=== PATIENT | female | born 1985 | race African-American/Black ===

== ENCOUNTER 2016-09-15 17:09 | Inpatient (IN) ==
[2016-09-15] MEDS ORDERED: ONDANSETRON 4 MG/2 ML VIAL IV PRN (20:03)
[2016-09-15 20:24] LABS: Basophils % 0.3 % (0.0-0.8); Eosinophils # 0.1 10*3/uL (0.0-0.87); Eosinophils % 1.5 % (0.00-10.9); Hemoglobin 11.7 GM/DL (12.0-16.0); Immature Granulocytes % 0.4 %; Immature Granulocytes Absolute 0.03 #; Lymphocytes # 3.3 10*3/uL (1.4-4.0); Mean Corpuscular HGB Conc 33.4 GM/DL (32-36); Mean Corpuscular Hemoglobin 26 PG (27-34); Mean Corpuscular Volume 78.3 FL (87-102); Mean Platelet Volume 11.1 FL (9.6-12.0); Monocytes # 0.5 10*3/uL (0.11-0.8); Monocytes % 6.4 % (1.7-12.7); Neutrophils # 3.9 10*3/uL (1.4-7.4); Neutrophils % 49.4 % (38.7-73.9); Platelet Count 273 T/CUMM (130-400); Red Blood Count 4.47 MC/CUMM (3.8-5.5); Red Cell Distribution Width 15.4 % (9.3-17.3); White Blood Count 7.9 T/CUMM (4-12)
[2016-09-15] MEDS: INSULIN NPH 100 UNIT/ML SUBCUT SCH (20:28)
[2016-09-15] MEDS: INSULIN REGULAR 100 UNIT/ML SUBCUT SCH (20:28)
[2016-09-15] MEDS: LACTATED RINGERS 1,000 ML IV SCH (20:30)
[2016-09-15] MEDS ORDERED: BUTORPHANOL 1 MG/ML VIAL ONE (20:34)
[2016-09-15] MEDS: BUTORPHANOL 2 MG/ML VIAL IV PRN (20:35)
[2016-09-15] MEDS: AMPICILLIN INJ 2,000 MG in SODIUM CHLORIDE 0.9% 100 ML IV SCH (21:37)
[2016-09-15] MEDS ORDERED: INSULIN REGULAR 100 UNIT/ML SUBCUT ONE (23:58)
[2016-09-16] MEDS ORDERED: ALUMINUM/MAGNES/SIMETH MAX STR 30 ML UDCUP PO PRN (00:52)
[2016-09-16] MEDS: BUTORPHANOL 2 MG/ML VIAL IV PRN (01:04)
[2016-09-16] MEDS: AMPICILLIN INJ 2,000 MG in SODIUM CHLORIDE 0.9% 100 ML IV SCH ×3 (03:20→16:00)
[2016-09-16] MEDS: LACTATED RINGERS 1,000 ML IV SCH ×3 (06:16→16:01)
[2016-09-16] MEDS ORDERED: OXYTOCIN/LR 20 UNIT/1,000 ML BAG IV SCH (06:30)
[2016-09-16] MEDS ORDERED: fentaNYL 2 MCG/ROPIV 0.2% EPID 150 ML EPIDURAL SCH (07:32)
[2016-09-16] MEDS ORDERED: ePHEDrine 50 MG/ML AMP IV PRN (07:32)
[2016-09-16] MEDS ORDERED: CITRIC ACID/SODIUM CITRATE 30 ML UDCUP PO ONE (07:32)
[2016-09-16] MEDS ORDERED: PROMETHAZINE 25 MG/1 ML VIAL IM ONE (07:32)
[2016-09-16] MEDS ORDERED: diphenhydrAMINE 50 MG/1 ML VIAL IV PRN (07:32)
[2016-09-16] MEDS ORDERED: FAMOTIDINE 20 MG/2 ML VIAL IV ONE (07:32)
[2016-09-16] MEDS ORDERED: hydrOXYzine HCL 25 MG/1 ML VIAL IM PRN (07:32)
--- NOTE | 2016-09-16 09:12 | OB/GYN History & Physical ---
History of Present Illness Chief complaint: Contractions History of present illness: Ms. Goins is a 30 year old female 37 weeks gestation with history of type 1 diabetes mellitus presents to the office for routine care. Patient was found to be dilated 4-5 cm with irregular uterine contractions. She was therefore sent to labor and delivery for evaluation. Home Medications Medication Instructions Recorded Confirmed Type Insulin NPH [HumuLIN N] 12 unit SUBCUT DIRECTED 09/15/16 09/15/16 History Multivitamin () [ 1 tablet PO DAILY 09/15/16 09/17/16 History Vitamin] Ibuprofen Tab [Motrin Tab] 800 mg PO Q6H PRN #60 tablet 09/18/16 Rx metFORMIN [Glucophage] 500 mg PO BID W/MEALS #60 tablet 09/18/16 Rx Allergies Allergy/AdvReac Type Severity Reaction Status Date / Time strawberry Allergy RASH Verified 03/24/16 18:35 12 point system: reviewed and no additional remarkable complaints except as stated Medical,Surgical,& Family Hx - Medical History Cardio: History of: Hypertension Endocrine: History of: Diabetes Mellitus (IDDM), Diabetes Mellitus (NIDDM) Reproductive: No history of: Ectopic , Complication - Surgical History Reproductive Surgeries: Patient denies;: Section - Family History Family History: Reports;: Family Diabetes (FATHER) Denies;: Family Anesthesia Reaction, Family Cancer, Family Heart Disease, Family Hematology, Family Hypertension, Family Psychiatric Problems, Family Stroke, Additional Family History - Social History Smoking Status: Current every day smoker Frequency of Alcohol Use: None Type of Drug Use: 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 - Constitutional Vitals: Vital Signs Temp Pulse Resp BP Pulse Ox 09/16/16 04:00 98.2 F 62 18 129/87 09/15/16 23:22 97.7 F 72 18 130/67 09/15/16 20:00 98.3 F 76 18 145/90 09/15/16 16:00 83 18 136/86 100 General appearance: mild distress - Head Head exam: Present: normocephalic - ENT ENT exam: Present: normal exam - Neck Neck exam: Present: normal inspection - Respiratory Respiratory exam: Present: clear to auscultation bilaterally - Cardiovascular Cardiovascular exam: Present: regular rate and rhythm - GI/Abdominal GI/Abdominal exam: Present: normal bowel sounds - Extremities Exam Extremities exam: Present: normal inspection - Back Exam Back exam: Present: normal inspection - Neurological Exam Neurological exam: Present: alert, oriented X3 - Psychiatric Psychiatric exam: Present: normal affect, normal mood - Skin Skin exam: Present: normal color, warm Assessment and Plan (1) 37 weeks gestation of Status: Acute Current Visit: Yes (2) Diabetes mellitus affecting Status: Acute Current Visit: Yes Results - Labs CBC & BMP: 09/18/16 05:50
[2016-09-16] MEDS ORDERED: BISACODYL 10 MG SUPP RECTAL PRN (13:48)
[2016-09-16] MEDS ORDERED: WITCH HAZEL PADS 100/JAR TOP PRN (13:48)
[2016-09-16] MEDS ORDERED: MEASLES/MUMPS/RUBELLA VACCINE 0.5 ML VIAL SUBCUT ONE (13:48)
[2016-09-16] MEDS ORDERED: RHO(D) IMMUNE GLOBULIN 300 MCG SYRINGE IM ONE (13:48)
[2016-09-16] MEDS ORDERED: ACETAMINOPHEN 325 MG TABLET PO PRN (13:48)
[2016-09-16] MEDS ORDERED: oxyCODONE/ACETAMINOPHEN 5-325 MG TABLET PO PRN (13:48)
[2016-09-16] MEDS ORDERED: LANOLIN 50% CREAM 0.3 OZ TUBE TOP PRN (13:48)
[2016-09-16] MEDS ORDERED: OXYTOCIN/LR 20 UNIT/1,000 ML BAG IV ONE (13:48)
[2016-09-16] MEDS ORDERED: ONDANSETRON 4 MG/2 ML VIAL IV PRN (13:48)
[2016-09-16] MEDS ORDERED: BENZOCAINE 20%/MENTHOL 0.5% SPRAY 56 GM CAN TOP PRN (13:48)
[2016-09-16] MEDS ORDERED: HYDROCORTISONE 2.5% RECTAL CREAM 30 GM TUBE TOP PRN (13:48)
[2016-09-16] MEDS ORDERED: DIPH/TET/ACEL PERT BOOSTER VACCINE 0.5 ML VIAL IM ONE (13:48)
--- NOTE | 2016-09-16 13:52 | Operative Note ---
Date of procedure: 09/16/16 Procedure Preformed: Patient delivered a liveborn male via spontaneous vaginal delivery with vacuum assistance. Vacuum applied 2 with total application 1 application time less than 30 seconds. Baby's head was delivered in the OA position. With nuchal cord 1 easily reduced. The baby's nose mouth bulb suctioned the perineum. Anterior posterior shoulders followed by the body was delivered with ease. Status post internal after" was doubly clamped and cut. Cord blood was sent. Placenta was delivered spontaneously and intact with three-vessel cord. Midline episiotomy was cut and repaired with 2-0 chromic. The uterus was massaged and was found to confirm a well contracted. Birthweight []. Apgars 8 9. Baby and mother stable. And the procedure all sponge lap counts correct 2. Surgeon / Physician: Lizy Snyder Post-op diagnosis: same Findings: Liveborn male Apgars 8 and 9. Birthweight unavailable at time of dictation Specimens: none sent Estimated blood loss: other (100 mL) Condition: stable Anesthesia: epidural Disposition: floor
[2016-09-16] MEDS ORDERED: MAGNESIUM SULF RIDER 100 ML IV ONE (15:38)
[2016-09-16] MEDS ORDERED: MAGNESIUM SULF DRIP 40 GM/1,000 ML ML IV SCH (16:00)
[2016-09-16] MEDS: IBUPROFEN 800 MG TABLET PO PRN (18:14)
[2016-09-16] MEDS: oxyCODONE/ACETAMINOPHEN 5-325 MG TABLET PO PRN (18:15)
[2016-09-16] MEDS: INSULIN REGULAR 100 UNIT/ML SUBCUT SCH ×2 (19:03→21:00)
[2016-09-16] MEDS ORDERED: INSULIN REGULAR 100 UNIT/ML SUBCUT SCH (19:04)
[2016-09-16] MEDS: INSULIN NPH 100 UNIT/ML SUBCUT SCH (21:00)
[2016-09-17] MEDS: IBUPROFEN 800 MG TABLET PO PRN ×3 (05:40→18:32)
[2016-09-17] MEDS: oxyCODONE/ACETAMINOPHEN 5-325 MG TABLET PO PRN ×3 (05:40→18:35)
[2016-09-17 05:46] LABS: Basophils % 0.2 % (0.0-0.8); Eosinophils # 0.2 10*3/uL (0.0-0.87); Eosinophils % 1.1 % (0.00-10.9); Hematocrit 27.5 VOL% (35.7-47.0); Hemoglobin 9.3 GM/DL (12.0-16.0); Immature Granulocytes % 0.4 %; Immature Granulocytes Absolute 0.05 #; Lymphocytes # 3.8 10*3/uL (1.4-4.0); Lymphocytes % 26.7 % (21.3-54.2); Mean Corpuscular HGB Conc 33.8 GM/DL (32-36); Mean Corpuscular Hemoglobin 26 PG (27-34); Mean Corpuscular Volume 77.7 FL (87-102); Mean Platelet Volume 11.5 FL (9.6-12.0); Monocytes # 1.1 10*3/uL (0.11-0.8); Monocytes % 7.7 % (1.7-12.7); Neutrophils % 63.9 % (38.7-73.9); Platelet Count 195 T/CUMM (130-400); Red Blood Count 3.54 MC/CUMM (3.8-5.5); Red Cell Distribution Width 15.2 % (9.3-17.3); White Blood Count 14.1 T/CUMM (4-12)
--- NOTE | 2016-09-17 08:13 | OB/GYN Progress Note ---
Assessment and Plan (1) 37 weeks gestation of Status: Acute Current Visit: Yes (2) Diabetes mellitus affecting Status: Acute Current Visit: Yes (3) Pre-eclampsia affecting puerperium Status: Acute Assessment and plan: Continue magnesium sulfate until 24 hours . 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 Breast-feeding with ease. 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: Vital Signs Temp Pulse Resp BP 09/17/16 06:00 20 09/17/16 04:00 97.6 F 93 H 18 133/92 09/17/16 02:00 18 09/17/16 00:00 97.8 F 93 H 20 172/86 09/16/16 22:00 20 09/16/16 20:00 97.6 F 95 H 20 156/98 General appearance: no acute distress - Antepartum / Post Post Exam Abdomen obstetrics: Present: bowel sounds normal Vagina: Present: normal moisture Uterus exam: Present: normal size, normal contour Anus/Rectum: Present: normal perianal skin - Respiratory Respiratory exam: Present: clear to auscultation bilaterally - Cardiovascular Cardiovascular exam: Present: regular rate and rhythm - GI/Abdominal GI/Abdominal exam: Present: soft - Extremities Exam Extremities exam: Present: normal inspection - Back Exam Back exam: Present: normal inspection - Neurological Exam Neurological exam: Present: alert, oriented X3 - Psychiatric Psychiatric exam: Present: normal affect, normal mood - Skin Skin exam: Present: normal color, warm Results - Labs CBC & BMP: 09/17/16 05:07
[2016-09-17] MEDS: DOCUSATE SODIUM 100 MG CAPSULE PO SCH ×3 (09:05→22:01)
[2016-09-17] MEDS: INSULIN NPH 100 UNIT/ML SUBCUT SCH ×2 (09:05→21:17)
[2016-09-17] MEDS: INSULIN REGULAR 100 UNIT/ML SUBCUT SCH ×5 (09:10→21:48)
[2016-09-17] MEDS ORDERED: INSULIN REGULAR 100 UNIT/ML SUBCUT ONE (11:00)
[2016-09-17] MEDS ORDERED: DEXTROSE 50% 25 GM/50 ML VIAL IV PRN (11:02)
[2016-09-17] MEDS ORDERED: GLUCAGON 1 MG VIAL IM PRN (11:02)
--- NOTE | 2016-09-17 12:01 | Anesthesia Post-Op ---
Anesthesia Post OP - Post Ansesthetic Evaluation Patient seen in post op: Yes Resp: within normal limits CV: within normal limits Mental: within normal limits Temp: within normal limits [id number]: within normal limits Nausea and Vomiting: within normal limits Pain: within normal limits
[2016-09-18] MEDS: IBUPROFEN 800 MG TABLET PO PRN
[2016-09-18 06:05] LABS: Basophils % 0.3 % (0.0-0.8); Eosinophils # 0.2 10*3/uL (0.0-0.87); Eosinophils % 1.5 % (0.00-10.9); Hematocrit 27.9 VOL% (35.7-47.0); Hemoglobin 9.3 GM/DL (12.0-16.0); Immature Granulocytes % 0.3 %; Immature Granulocytes Absolute 0.03 #; Lymphocytes % 44.7 % (21.3-54.2); Mean Corpuscular HGB Conc 33.3 GM/DL (32-36); Mean Corpuscular Hemoglobin 26 PG (27-34); Mean Corpuscular Volume 78.8 FL (87-102); Mean Platelet Volume 11.2 FL (9.6-12.0); Monocytes # 0.7 10*3/uL (0.11-0.8); Monocytes % 6.2 % (1.7-12.7); Neutrophils # 5.3 10*3/uL (1.4-7.4); Platelet Count 208 T/CUMM (130-400); Red Blood Count 3.54 MC/CUMM (3.8-5.5); Red Cell Distribution Width 15.7 % (9.3-17.3); White Blood Count 11.2 T/CUMM (4-12)
[2016-09-18 07:36] VITALS: BP 152/75
[2016-09-18] MEDS: INSULIN REGULAR 100 UNIT/ML SUBCUT SCH ×2 (08:24→08:26)
[2016-09-18] MEDS: INSULIN NPH 100 UNIT/ML SUBCUT SCH (08:25)
[2016-09-18] MEDS: oxyCODONE/ACETAMINOPHEN 5-325 MG TABLET PO PRN ×2 (08:27)
--- NOTE | 2016-09-18 08:52 | Discharge Summary ---
Hospital Course - Hospital Course Hospital Course: This is a 30-year-old female admitted at 37 weeks gestation in labor. Patient subsequently delivered a liveborn infant via spontaneous vaginal delivery. Hospital course complicated by elevated Accu-Cheks due to patient noncompliance with regard to her diet. Otherwise unremarkable. Patient is breast-feeding and ready for discharge this morning Diagnosis - Discharge Diagnosis (1) 37 weeks gestation of Status: Acute (2) Diabetes mellitus affecting Status: Acute (3) Pre-eclampsia affecting puerperium Status: Acute (4) Vaginal delivery Status: Acute Specialty Discharge - Follow Up or Referrals Discharge Plan - Discharge Data Disposition: Disch To Home/Self Care Condition at Discharge: Stable Discharge Diet: diabetic diet Activity: resume usual activities as tolerated (Pelvic rest) Hygiene: may shower Weight Bearing at Discharge: weight bear as tolerated Driving: not until seen by doctor (1 week) Contact your physician if you experience:: fever over 101, Difficulty voiding, Redness or swelling, Nausea/Vomiting, Shortness of breath, Bleeding, pain uncontrolled by pain medications - Discharge Medications New Ibuprofen Tab [Motrin Tab] 800 mg PO Q6H PRN #60 tablet PRN Reason: Pain Moderate (4-7) metFORMIN [Glucophage] 500 mg PO BID W/MEALS #60 tablet No Action Multivitamin () [ Vitamin] 1 tablet PO DAILY Insulin NPH [HumuLIN N] 12 unit SUBCUT DIRECTED - Follow Up or Referral Follow Up: Lizy Snyder MD [Physician] - 1 Month - Forms/Instructions Instructions: Low Fat Diet (GEN) Exam - Constitutional Vitals: Period Temp Pulse Resp BP Sys/Garcia Pulse Ox Last 24 Hr 97.5 F-98.7 F 6-100 18-20 128-154/73-96 97-100 General appearance: no acute distress - Head Head exam: Present: normocephalic - ENT ENT exam: Present: normal exam - Neck Neck exam: Present: normal inspection - Respiratory Respiratory exam: Present: clear to auscultation bilaterally - Cardiovascular Cardiovascular exam: Present: regular rate and rhythm - GI/Abdominal GI/Abdominal exam: Present: normal bowel sounds, soft, other (Uterus firm and well contracted at the level of the umbilicus) - Extremities Exam Extremities exam: Present: normal inspection - Back Exam Back exam: Present: normal inspection - Neurological Exam Neurological exam: Present: alert, oriented X3 - Psychiatric Psychiatric exam: Present: normal affect, normal mood - Skin Skin exam: Present: normal color, warm Discharge Results Labs on day of discharge: Labs from last 24 hours 09/18/16 09/18/16 09/17/16 07:49 05:50 19:48 WBC 11.2 RBC 3.54 L Hgb 9.3 L Hct 27.9 L MCV 78.8 L MCH 26 L MCHC 33.3 RDW 15.7 Plt Count 208 MPV 11.2 Neut % (Auto) 47.0 Lymph % (Auto) 44.7 Reagan % (Auto) 6.2 Eos % (Auto) 1.5 Baso % (Auto) 0.3 Neut # (Auto) 5.3 Lymph # (Auto) 5.0 H Reagan # (Auto) 0.7 Eos # (Auto) 0.2 Baso # (Auto) 0.0 Immature Gran % 0.3 Nucleated RBC % 0.0 Immature Gran # 0.03 Nucleated RBCs # 0.00 POC Glucose 157 H 164 H Magnesium 09/17/16 09/17/16 09/17/16 16:25 14:22 10:57 WBC RBC Hgb Hct MCV MCH MCHC RDW Plt Count MPV Neut % (Auto) Lymph % (Auto) Reagan % (Auto) Eos % (Auto) Baso % (Auto) Neut # (Auto) Lymph # (Auto) Reagan # (Auto) Eos # (Auto) Baso # (Auto) Immature Gran % Nucleated RBC % Immature Gran # Nucleated RBCs # POC Glucose 264 H 349 H Magnesium 3.1 H DS: Provider Date of admission: 09/15/16 20:03 Attending physician on admission: Lizy Snyder MD Consults: 09/15/16 20:03 Consult to Anesthesiology [CONS] Routine Consulting Provider: Reason for Anesthesiology: Epidural Consult Comment: Epidural for pain managment 09/16/16 13:48 Consult to Certified Medicine Aide [CONS] Routine Consult Certified Medicine Aide: Breast Feeding Discharging clinician: Lizy Snyder MD
[2016-09-18] MEDS: DOCUSATE SODIUM 100 MG CAPSULE PO SCH (09:09)
--- NOTE | 2016-09-26 11:10 | Physician Query Form ---
CLICK EDIT DOCUMENT TO SELECT QUERY ANSWER --> OK --> SIGN Lety Crenshaw RN Clinical Audio Visual Aide W) [phone] (f) [phone] [email or web address]: Make your selection(s) from the choices in EACH section by typing an "x" and enter comments in the comment section. Please use your independent medical judgment in providing your response. This request does not imply that any particular answer is desired or expected. CLINICAL INDICATORS: (Providers should not edit this section) Based on documentation of "Patient delivered a liveborn male via spontaneous vaginal delivery with vacuum assistance. Vacuum applied 2 with total application 1 application time less than 30 seconds." Please clarify reason for vacuum assistance Based on the above, could you clarify the appropriate diagnosis, if significant , that supports the above abnormalities and additional evaluation, monitoring, and/or treatment rendered: ( ) Distress (x ) Maternal Exhaustion ( ) Labor Complications ( ) Attempted or Failed Delivery ( ) Other, please specify: ( ) Clinically unable to determine COMMENTS: PLEASE ALSO DOCUMENT RESPONSE IN PROGRESS NOTES AND/OR DISCHARGE SUMMARY Use of terms such as suspected, likely, or probable (associated with a specific diagnosis that is being evaluated, monitored, or treated as if it exists) are acceptable and can be restated in the discharge summary if not ruled out. MTDD
== END 2016-09-18 12:30 | disposition home or self-care (01) | DRG 560 ==
LOC: N.LDOUT 17:09 → N.LD 17:12 → N.OB 09-17 10:45
PROVIDERS: ADMIT Obstetrics & Gynecology; ATTEND Obstetrics & Gynecology

== ENCOUNTER 2017-11-11 13:50 | Inpatient (IN) ==
[2017-11-11 15:09] LABS: Basophils % 0.2 % (0.0-0.8); Hemoglobin 11.6 GM/DL (12.0-16.0); Immature Granulocytes % 0.2 %; Immature Granulocytes Absolute 0.02 #; Lymphocytes # 3.1 10*3/uL (1.4-4.0); Lymphocytes % 35.8 % (21.3-54.2); Mean Corpuscular HGB Conc 33.1 GM/DL (32-36); Mean Corpuscular Hemoglobin 27 PG (27-34); Mean Corpuscular Volume 80.1 FL (87-102); Mean Platelet Volume 12.8 FL (9.6-12.0); Monocytes # 0.7 10*3/uL (0.11-0.8); Monocytes % 7.5 % (1.7-12.7); Neutrophils # 4.9 10*3/uL (1.4-7.4); Neutrophils % 56.3 % (38.7-73.9); Platelet Count 251 T/CUMM (130-400); Red Blood Count 4.37 MC/CUMM (3.8-5.5); Red Cell Distribution Width 14.8 % (9.3-17.3); White Blood Count 8.6 T/CUMM (4-12)
[2017-11-11 15:31] LABS: Cord Venous Blood HCO3 11.4 MMOL/L; Cord Venous Blood PCO2 81.3 MMHG
[2017-11-11 15:37] LABS: INR 0.9; PT Patient Result 9.4 SECS; Partial Thromboplastin Time 24.9 SECS (0-40)
[2017-11-11 15:43] LABS: Cord Venous Blood PO2 7.8
[2017-11-11 15:50] LABS: Albumin 2.6 G/DL (3.4-5.0); Bilirubin,Total 0.4 MG/DL (0.2-1.0); Calcium 10.1 MG/DL (8.5-10.1); Osmolality,Calculated 278.4 MOS/KG (273-304); Potassium 4.5 MMOL/L (3.5-5.1); Total Protein 6.7 G/DL (6.4-8.3)
[2017-11-11 19:06] LABS: Barbiturates Screen,Urine Negative (Negative); Benzodiazepines Screen,Urine Negative (Negative); Cannabinoid Screen,Urine Negative (Negative); Opiate Screen,Urine Negative (Negative); Phencyclidine Screen,Urine Negative (Negative)
[2017-11-11 19:18] LABS: Apearance,Urine Slightly Hazy (Clear); Bilirubin,Urine Negative (Negative); Blood, Urine Large mg/dL (Negative); Glucose,Urine (UA) >=500 mg/dL (Negative); Ketones,Urine 5 mg/dL (Negative); Mucus,Urine Occasional /LPF (Occasional); Nitrite,Urine Negative (Negative); Protein,Urine 100 MG/DL; RBC,Urine 1496 /HPF (0-4); Urine Color Yellow (Yellow); Urine Specific Gravity 1.011 (1.001-1.035); Urine Urobilinogen < 2.0 EU/DL (0.2-1.0)
[2017-11-12 05:32] LABS: Basophils % 0.3 % (0.0-0.8); Hematocrit 31.3 VOL% (35.7-47.0); Hemoglobin 10.8 GM/DL (12.0-16.0); Immature Granulocytes % 0.3 %; Immature Granulocytes Absolute 0.03 #; Lymphocytes # 3.2 10*3/uL (1.4-4.0); Lymphocytes % 27.6 % (21.3-54.2); Mean Corpuscular HGB Conc 34.5 GM/DL (32-36); Mean Corpuscular Hemoglobin 27 PG (27-34); Mean Corpuscular Volume 77.3 FL (87-102); Mean Platelet Volume 11.9 FL (9.6-12.0); Monocytes # 1.1 10*3/uL (0.11-0.8); Monocytes % 9.4 % (1.7-12.7); Neutrophils # 7.2 10*3/uL (1.4-7.4); Neutrophils % 62.4 % (38.7-73.9); Platelet Count 205 T/CUMM (130-400); Red Blood Count 4.05 MC/CUMM (3.8-5.5); Red Cell Distribution Width 14.7 % (9.3-17.3); White Blood Count 11.4 T/CUMM (4-12)
[2017-11-13 08:22] VITALS: BP 127/85
== END 2017-11-13 11:00 | disposition home or self-care (01) | DRG 560 ==
LOC: N.LDOUT 13:50 → N.LD 14:41 → N.OB 11-12 19:03
PROVIDERS: ADMIT Obstetrics & Gynecology; ATTEND Obstetrics & Gynecology

== ENCOUNTER 2020-05-09 00:05 | Inpatient (IN) ==
[2020-05-09] MEDS ORDERED: ONDANSETRON 4 MG/2 ML VIAL IV PRN ×2 (00:16→05:14)
[2020-05-09] MEDS ORDERED: LACTATED RINGERS 1,000 ML IV SCH (00:30)
[2020-05-09] MEDS ORDERED: AMPICILLIN INJ 2,000 MG in SODIUM CHLORIDE 0.9% 100 ML IV ONE ×2 (01:00→04:01)
[2020-05-09 01:28] LABS: Alanine Aminotransferase 18 U/L (13-56); Albumin 2.4 G/DL (3.4-5.0); Alkaline Phosphatase 168 U/L (45-117); Aspartate Amino Transferase 12 U/L (0-37); Bilirubin,Total < 0.39 MG/DL (0.2-1.0); Blood Urea Nitrogen 9 MG/DL (7-18); Carbon Dioxide 19 MMOL/L (21-32); Estimated Glom Filtration Rate 119 ML/MIN; Glucose 145 MG/DL (74-106); Potassium 3.8 MMOL/L (3.5-5.1); Sodium 136 MMOL/L (136-145)
[2020-05-09 01:35] LABS: Basophils % 0.2 % (0.0-0.8); Eosinophils % 0.1 % (0.00-10.9); Hematocrit 33.9 VOL% (35.7-47.0); Hemoglobin 11.3 GM/DL (12.0-16.0); Immature Granulocytes % 0.4 %; Immature Granulocytes Absolute 0.04 #; Lymphocytes # 3.2 10*3/uL (1.4-4.0); Lymphocytes % 30.1 % (21.3-54.2); Mean Corpuscular HGB Conc 33.3 GM/DL (32-36); Mean Corpuscular Volume 86.3 FL (87-102); Monocytes % 6.8 % (1.7-12.7); Neutrophils % 62.4 % (38.7-73.9); Platelet Count 210 T/CUMM (130-400); Red Blood Count 3.93 MC/CUMM (3.8-5.5); Red Cell Distribution Width 14.4 % (9.3-17.3); White Blood Count 10.7 T/CUMM (4-12)
[2020-05-09 01:36] LABS: Barbiturates Screen,Urine Negative (Negative); Benzodiazepines Screen,Urine Negative (Negative); Cannabinoid Screen,Urine Negative (Negative); Opiate Screen,Urine Positive (Negative); Phencyclidine Screen,Urine Negative (Negative)
[2020-05-09 01:40] LABS: Bacteria,Urine Occasional /HPF (Few); Bilirubin,Urine Negative (Negative); Blood, Urine Negative (Negative); Glucose,Urine (UA) Negative (Negative); Ketones,Urine Negative (Negative); Mucus,Urine Occasional /LPF (Occasional); Nitrite,Urine Negative (Negative); Protein,Urine 30 MG/DL; RBC,Urine 3 /HPF (0-4); Squamous Epithelial Cell,Urine Few /HPF (0-10); Urine Appearance Slightly Hazy (Clear); Urine Color Yellow (Yellow); WBC,Urine 5 /HPF (0-6)
[2020-05-09 03:15] LABS: Lymphocytes 25 % (20-55); Segmented Neutrophils 75 % (50-85); Total Cells Counted 100
[2020-05-09 03:18] LABS: Atypical Lymphocytes 1+; Platelet Estimate Decreased; Polychromasia Few; Reactive Lymphocytes Few
[2020-05-09] MEDS ORDERED: BUTORPHANOL 2 MG/ML VIAL IV PRN (03:53)
[2020-05-09] MEDS ORDERED: ePHEDrine 50 MG/ML VIAL IV PRN (03:54)
[2020-05-09] MEDS ORDERED: NALOXONE 0.4 MG/ML VIAL IV PRN (03:54)
[2020-05-09] MEDS ORDERED: CITRIC ACID/SODIUM CITRATE 30 ML UDCUP PO ONE (03:54)
[2020-05-09] MEDS ORDERED: hydrOXYzine HCL 25 MG/1 ML VIAL IM PRN (03:54)
[2020-05-09] MEDS ORDERED: MEPERIDINE 50 MG/1 ML VIAL IV PRN (03:54)
[2020-05-09] MEDS ORDERED: LACTATED RINGERS 1,000 ML IV ONE (03:54)
[2020-05-09] MEDS ORDERED: FAMOTIDINE 20 MG/2 ML VIAL IV ONE (03:54)
[2020-05-09] MEDS ORDERED: PROMETHAZINE 25 MG/1 ML VIAL IM ONE (03:54)
[2020-05-09] MEDS ORDERED: diphenhydrAMINE 50 MG/1 ML VIAL IV PRN ×2 (03:54)
[2020-05-09] MEDS ORDERED: BUTORPHANOL 2 MG/ML VIAL ONE (03:57)
[2020-05-09] MEDS ORDERED: fentaNYL 2 MCG/ROPIV 0.2% EPID 100 ML EPIDURAL SCH (04:00)
[2020-05-09] MEDS ORDERED: AMPICILLIN 2,000 MG VIAL ONE (04:01)
[2020-05-09] MEDS ORDERED: SODIUM CHLORIDE 0.9% 100 ML IV ONE (04:01)
[2020-05-09] MEDS ORDERED: MAGNESIUM SULF RIDER 100 ML IV ONE ×2 (04:04→04:05)
[2020-05-09] MEDS ORDERED: LABETALOL 100 MG/20 ML VIAL IV ONE ×2 (04:10)
[2020-05-09] MEDS ORDERED: MAGNESIUM SULF DRIP 40 GM/1,000 ML ML IV ONE (04:13)
[2020-05-09] MEDS ORDERED: TRANEXAMIC ACID 1,000 MG/10 ML VIAL ONE (04:34)
[2020-05-09] MEDS ORDERED: miSOPROStoL 200 MCG TABLET ONE (04:34)
[2020-05-09] MEDS ORDERED: OXYTOCIN/LR 20 UNIT/1,000 ML BAG IV ONE ×2 (04:34→05:14)
[2020-05-09] MEDS ORDERED: METHYLERGONOVINE 0.2 MG/1 ML AMP ONE (04:35)
[2020-05-09] MEDS ORDERED: CARBOPROST TROMETHAMINE 250 MCG/ML AMP IM ONE (04:35)
[2020-05-09] MEDS ORDERED: LIDOCAINE 1% 50 ML VIAL ONE (04:35)
[2020-05-09] MEDS ORDERED: AMPICILLIN INJ 1,000 MG in SODIUM CHLORIDE 0.9% 100 ML IV SCH (05:00)
[2020-05-09] MEDS ORDERED: MAGNESIUM SULF DRIP 40 GM/1,000 ML ML IV SCH (05:00)
[2020-05-09 05:03] LABS: Cord Arterial Blood HCO3 18.5 MMOL/L
[2020-05-09 05:06] LABS: Cord Venous Blood HCO3 20.2 MMOL/L; Cord Venous Blood PCO2 42.2 MMHG; Cord Venous Blood PO2 30.4
[2020-05-09] MEDS ORDERED: hydrALAZINE 20 MG/1 ML VIAL ONE ×2 (05:12→09:42)
[2020-05-09] MEDS ORDERED: DIPH/TET/ACEL PERT BOOSTER VACCINE 0.5 ML VIAL IM ONE (05:14)
[2020-05-09] MEDS ORDERED: MEASLES/MUMPS/RUBELLA VACCINE 0.5 ML VIAL SUBCUT ONE (05:14)
[2020-05-09] MEDS ORDERED: RHO(D) IMMUNE GLOBULIN 300 MCG SYRINGE IM ONE (05:14)
[2020-05-09] MEDS ORDERED: oxyCODONE/ACETAMINOPHEN 5-325 MG TABLET PO PRN (05:14)
[2020-05-09] MEDS ORDERED: WITCH HAZEL PADS 100/JAR TOP PRN (05:14)
[2020-05-09] MEDS ORDERED: BISACODYL 10 MG SUPP RECTAL PRN (05:14)
[2020-05-09] MEDS ORDERED: BENZOCAINE 20%/MENTHOL 0.5% SPRAY 56 GM CAN TOP PRN (05:14)
[2020-05-09] MEDS ORDERED: LANOLIN 50% CREAM 0.3 OZ TUBE TOP PRN (05:14)
[2020-05-09] MEDS ORDERED: HYDROCORTISONE 2.5% RECTAL CREAM 30 GM TUBE TOP PRN (05:14)
[2020-05-09] MEDS ORDERED: ACETAMINOPHEN 325 MG TABLET PO PRN (05:14)
[2020-05-09] MEDS ORDERED: LABETALOL 100 MG/20 ML VIAL IV PRN ×2 (06:05)
[2020-05-09] MEDS: LABETALOL 100 MG/20 ML VIAL IV PRN ×3 (06:18→06:23)
[2020-05-09 06:31] LABS: Bilirubin,Direct < 0.100 MG/DL (0.0-0.20); Uric Acid 5.4 MG/DL (2.6-6.0)
[2020-05-09 06:36] LABS: INR 0.9; PT Patient Result 9.4 SECS (9.8-11.9); Partial Thromboplastin Time 26.7 SECS (23.9-33.8)
[2020-05-09] MEDS: LABETALOL 100 MG TABLET PO SCH ×2 (09:26→20:49)
[2020-05-09] MEDS: DOCUSATE SODIUM 100 MG CAPSULE PO SCH ×2 (09:41→20:49)
[2020-05-09] MEDS: INSULIN NPH 100 UNIT/ML SUBCUT SCH (09:42)
[2020-05-09] MEDS: INSULIN REGULAR 100 UNIT/ML SUBCUT SCH (09:42)
[2020-05-09] MEDS ORDERED: hydrALAZINE 20 MG/1 ML VIAL IV ONE (09:43)
[2020-05-09] MEDS: oxyCODONE/ACETAMINOPHEN 5-325 MG TABLET PO PRN (11:42)
[2020-05-09] MEDS: IBUPROFEN 800 MG TABLET PO PRN (11:42)
[2020-05-09] MEDS ORDERED: INSULIN NPH 100 UNIT/ML SUBCUT SCH (16:30)
[2020-05-09] MEDS ORDERED: INSULIN REGULAR 100 UNIT/ML SUBCUT SCH (16:30)
[2020-05-10] MEDS: IBUPROFEN 800 MG TABLET PO PRN ×3 (01:47→21:10)
[2020-05-10] MEDS: oxyCODONE/ACETAMINOPHEN 5-325 MG TABLET PO PRN (01:48)
[2020-05-10 05:48] LABS: Basophils % 0.3 % (0.0-0.8); Eosinophils # 0.2 10*3/uL (0.0-0.87); Eosinophils % 1.6 % (0.00-10.9); Hematocrit 30.6 VOL% (35.7-47.0); Hemoglobin 10.3 GM/DL (12.0-16.0); Immature Granulocytes % 0.4 %; Immature Granulocytes Absolute 0.04 #; Lymphocytes # 3.6 10*3/uL (1.4-4.0); Lymphocytes % 35.1 % (21.3-54.2); Mean Corpuscular HGB Conc 33.7 GM/DL (32-36); Mean Corpuscular Volume 85.7 FL (87-102); Mean Platelet Volume 11.8 FL (9.6-12.0); Monocytes % 5.4 % (1.7-12.7); Neutrophils % 57.2 % (38.7-73.9); Platelet Count 187 T/CUMM (130-400); Red Blood Count 3.57 MC/CUMM (3.8-5.5); Red Cell Distribution Width 14.4 % (9.3-17.3); White Blood Count 10.3 T/CUMM (4-12)
[2020-05-10 06:09] LABS: Anisocytosis 1+; Band Neutrophils 1 % (0-10); Eosinophils 1 % (0-10); Lymphocytes 31 % (20-55); Platelet Estimate Normal; Segmented Neutrophils 65 % (50-85); Total Cells Counted 100
[2020-05-10 06:10] LABS: Macrocytosis Slight; Ovalocytes Few; Poikilocytosis Slight; Smudge Cells 1+; Tear Drop Cells Few
[2020-05-10] MEDS: INSULIN NPH 100 UNIT/ML SUBCUT SCH (07:53)
[2020-05-10] MEDS: INSULIN REGULAR 100 UNIT/ML SUBCUT SCH (07:53)
[2020-05-10] MEDS: DOCUSATE SODIUM 100 MG CAPSULE PO SCH ×2 (08:59→20:02)
[2020-05-10] MEDS: LABETALOL 100 MG TABLET PO SCH ×2 (08:59→20:02)
[2020-05-10] MEDS: metFORMIN 500 MG TABLET PO SCH (16:40)
[2020-05-11] MEDS: metFORMIN 500 MG TABLET PO SCH (08:34)
[2020-05-11] MEDS: DOCUSATE SODIUM 100 MG CAPSULE PO SCH (08:34)
[2020-05-11] MEDS: LABETALOL 100 MG TABLET PO SCH (08:34)
[2020-05-11 09:31] VITALS: BP 161/93
== END 2020-05-11 11:20 | disposition home or self-care (01) | DRG 560 ==
LOC: N.LDOUT 00:05 → N.LD 00:07 → N.OB 05-10 15:40
PROVIDERS: ADMIT Obstetrics & Gynecology; ATTEND Obstetrics & Gynecology